=== PATIENT | male | born 1995 | race Caucasian/White ===

== ENCOUNTER 2023-12-24 10:34 | Outpatient (OUT) | payer OTHER, SELFPAY ==
--- NOTE | 2023-12-24 10:45 | XR_ITS ---
[place] [id number] Patient Name: JEMAL URBINA MRN: [id number] date: 1995 Sex: M Assigned Patient Location: [facility] Current Patient Location: Accession/Order Number: [id number] Exam Date: 12/24/2023 10:50 Report Date: 12/25/2023 10:40 At the request of: PAVAN DURAND Procedure: XR chest 2V EXAM: XR chest 2V HISTORY: Dyspnea, Left Sided Chest Wall Pain COMPARISON: None. TECHNIQUE: Frontal and lateral views of the chest. FINDINGS: No focal consolidations or pleural effusions. Cardiomediastinal silhouette is unremarkable. Visualized osseous structures are unremarkable. XR/XR chest 2V IMPRESSION: No acute disease. Electronically authenticated by: CANDIDO HOFF Date: 12/25/2023 10:40
== END 2023-12-24 10:35 | disposition home or self-care (01) ==
LOC: RAD 10:39
PROVIDERS: PCP Nurse Practitioner Family; Visit Provider Family Medicine
DX: R06.00 Dyspnea, unspecified (principal); R07.89 Other chest pain
CPT/HCPCS: 71046